=== PATIENT | male | born 1985 | race Caucasian/White ===

== ENCOUNTER 2016-05-21 22:45 | Emergency (ER) | payer OTHER ==
[~2016-05-21] VITALS: Ht 175.3 cm; Wt 68.0 kg
[~2016-05-21 22:45] MED LIST: CYCL-36 PO; NAPR500 PO
[2016-05-21 22:53] VITALS: BP 142/70; PULSE 91; RESP 18; TEMP 98.4; O2SAT 100
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
[2016-05-21] MEDS ORDERED: HYDROmorphone HCL PF 1 MG/ML VIAL IV PUSH ONE (23:00)
[2016-05-21] MEDS ORDERED: ceFAZolin 2 GM PREMIX 50 ML IV ONE (23:00)
[2016-05-21] MEDS ORDERED: SODIUM CHLORIDE 0.9% FLUSH 10 ML FLUSH IV FLUSH PRN (23:00)
[2016-05-21 23:04] VITALS: O2SAT 100
[2016-05-21 23:30] LABS: AUTOMATED NEUTROPHIL # 3.3 TH/MM3 (1.8-7.7); BASOPHIL % 0.4 % (0.0-2.0); EOSINOPHIL # 0.1 TH/MM3 (0-0.4); EOSINOPHIL % 1.5 % (0.0-4.0); HEMO FLAGS DIFF FINAL; LYMPH % 38.9 % (9.0-44.0); LYMPHOCYTE # 2.6 TH/MM3 (1.0-4.8); MEAN CELL VOLUME 86.4 FL (80.0-100.0); MEAN CORPUSCULAR HEMOGLOBIN 30.3 PG (27.0-34.0); MEAN CORPUSCULAR HGB CONC 35.1 % (32.0-36.0); MONO % 9.9 % (0.0-8.0); NEUT % 49.3 % (16.0-70.0); PLATELET COUNT 175 TH/MM3 (150-450); RED BLOOD COUNT 4.29 MIL/MM3 (4.50-5.90); WHITE BLOOD COUNT 6.6 TH/MM3 (4.0-11.0)
[2016-05-21 23:41] LABS: APTT (PATIENT) 28.1 SEC (24.3-30.1)
[2016-05-21 23:51] LABS: POTASSIUM 3.5 MEQ/L (3.5-5.1)
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
[2016-05-22] MEDS ORDERED: CEPH-460 PO (01:07)
[2016-05-22] MEDS ORDERED: BACT800T5 PO (01:07)
[2016-05-22] MEDS ORDERED: PERC10TA27 PO (01:07)
--- NOTE | 2016-05-22 01:10 | RADRPT ---
EXAM DATE/TIME: 05/22/2016 00:18 [facility] COMPARISON: FEMUR LEFT (AP & LAT/2VWS), May 21, 2016, 23:06. INDICATIONS : Post removal of all bandages and sheets. MEDICAL HISTORY : None. SURGICAL HISTORY : None. ENCOUNTER: Subsequent ACUITY: 1 day PAIN SCORE: 10/10 LOCATION: Left Femur FINDINGS: Two view examination of the left femur demonstrates no evidence of fracture or dislocation. Bony min eralization is normal. The soft tissue structures demonstrate gas but no metallic fragments or forei gn body. CONCLUSION: 1. No foreign body is identified. Lucas Russo MD on May 22, 2016 at 1:08 Board Certified Radiologist. This report was verified electronically.
== END 2016-05-22 01:50 | disposition home or self-care (01) ==
LOC: NEPE 22:45
DX: S71.102A Unspecified open wound, left thigh, initial encounter (principal); F17.200 Nicotine dependence, unspecified, uncomplicated; W34.00XA Accidental discharge from unspecified firearms or gun, initial encounter
CPT/HCPCS: 73552; 80048; 85025; 85610; 85730; 96374; 96375; 99285; J0690; J1170

== ENCOUNTER 2016-10-02 17:16 | Emergency (ER) | payer OTHER ==
[~2016-10-02] VITALS: Ht 177.8 cm; Wt 72.5 kg
[~2016-10-02 17:16] MED LIST changes: +BACT800T5 PO; +CEPH-460 PO; -CYCL-36 PO; -NAPR500 PO; +PERC10TA27 PO
[2016-10-02 17:27] VITALS: BP 164/84; RESP 22; TEMP 98.9
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
[2016-10-02 18:09] LABS: AUTOMATED NEUTROPHIL # 5.7 TH/MM3 (1.8-7.7); BASOPHIL % 0.3 % (0.0-2.0); EOSINOPHIL % 0.4 % (0.0-4.0); HEMATOCRIT 40.2 % (39.0-51.0); HEMO FLAGS DIFF FINAL; LYMPH % 23.6 % (9.0-44.0); LYMPHOCYTE # 1.9 TH/MM3 (1.0-4.8); MEAN CELL VOLUME 86.7 FL (80.0-100.0); MEAN CORPUSCULAR HEMOGLOBIN 29.5 PG (27.0-34.0); MEAN CORPUSCULAR HGB CONC 34.1 % (32.0-36.0); MONO % 5.2 % (0.0-8.0); NEUT % 70.5 % (16.0-70.0); PLATELET COUNT 202 TH/MM3 (150-450); RED BLOOD COUNT 4.64 MIL/MM3 (4.50-5.90); RED CELL DISTRIBUTION WIDTH 13.2 % (11.6-17.2)
[2016-10-02 18:20] LABS: ALT (GPT) 29 U/L (12-78); ANION GAP 7 MEQ/L (5-15); AST (GOT) 14 U/L (15-37); BICARBONATE 27.8 MEQ/L (21.0-32.0); BLOOD UREA NITROGEN 9 MG/DL (7-18); CHLORIDE 105 MEQ/L (98-107); GLOMERULAR FILTRATION RATE 102 ML/MIN (>89); POTASSIUM 3.7 MEQ/L (3.5-5.1); SODIUM (NA) 140 MEQ/L (136-145)
[2016-10-02 18:23] LABS: ALKALINE PHOSPHATASE 111 U/L (45-117); TOTAL BILIRUBIN ADULT 0.4 MG/DL (0.2-1.0)
[2016-10-02 18:24] LABS: ALCOHOL LESS THAN 3 MG/DL (0-5)
[2016-10-02 18:41] VITALS: PULSE 64; O2SAT 98
[2016-10-02 22:45] VITALS: BP 110/59; PULSE 70; RESP 18
[2016-10-03 01:43] VITALS: BP 125/67; PULSE 66; RESP 18; TEMP 99.2; O2SAT 99
[2016-10-03 05:52] VITALS: BP 116/56; PULSE 80; RESP 18; TEMP 98.4; O2SAT 98
[2016-10-03 15:01] VITALS: BP 120/70; PULSE 80; RESP 18; O2SAT 100
[2016-10-03 18:46] VITALS: BP 134/63; PULSE 79; RESP 18; O2SAT 100
[2016-10-03 22:00] VITALS: BP 136/69; PULSE 74; RESP 18; O2SAT 97
[2016-10-04 02:08] VITALS: BP 143/64; PULSE 64; RESP 17; O2SAT 99
[2016-10-04] MEDS ORDERED: LOPERAMIDE HCL 2 MG CAP PO ONE (05:15)
[2016-10-04 06:09] VITALS: BP 133/64; PULSE 89; RESP 18; O2SAT 97
[2016-10-04 08:01] VITALS: BP 133/64; PULSE 89; RESP 18; O2SAT 97
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
== END 2016-10-04 12:19 | disposition home or self-care (01) ==
LOC: NEPD 17:16 → NEPJ 10-04 12:19
DX: F43.20 Adjustment disorder, unspecified (principal); F91.9 Conduct disorder, unspecified; F17.290 Nicotine dependence, other tobacco product, uncomplicated
CPT/HCPCS: 80053; 80307; 85025; 99284